=== PATIENT | male | born 1990 | race Caucasian/White ===

== ENCOUNTER 2017-04-29 10:02 | Observation (INO) | payer MEDICAID ==
[~2017-04-29] VITALS: Ht 177.8 cm; Wt 80.0 kg
[2017-04-29] MEDS ORDERED: SODIUM CHLORIDE 0.9% 1,000 ML IV ONE ×2 (12:02→12:11)
[2017-04-29] MEDS ORDERED: SODIUM CHLORIDE FLUSH 10ML SYR IVF PRN (12:30)
[2017-04-29] MEDS ORDERED: SODIUM CHLORIDE FLUSH 10ML SYR IVF ONE (12:30)
[2017-04-29] MEDS ORDERED: EPINEPHRINE 1 MG/ML, 1ML ONE (17:41)
[2017-04-29] MEDS ORDERED: BUPIVACAINE/PF 0.25% ONE (17:41)
[2017-04-29] MEDS ORDERED: DEXAMETHASONE 4 MG/ML, 1ML ONE ×3 (17:45→17:50)
[2017-04-29] MEDS ORDERED: ROCURONIUM 10 MG/ML,10ML ONE (17:45)
[2017-04-29] MEDS ORDERED: FENTANYL PF 100 MCG/2ML ONE ×3 (17:45→18:18)
[2017-04-29] MEDS ORDERED: ONDANSETRON 2MG/ML, 2ML ONE ×2 (17:45→17:50)
[2017-04-29] MEDS ORDERED: CEFAZOLIN 1,000 MG ONE ×3 (17:45→17:50)
[2017-04-29] MEDS ORDERED: PROPOFOL 10 MG/ML, 20ML ONE ×2 (17:45→17:50)
[2017-04-29] MEDS ORDERED: NEOSTIGMINE 1 MG/ML, 10ML ONE (17:50)
[2017-04-29] MEDS ORDERED: MIDAZOLAM 1 MG/ML, 2ML ONE ×2 (17:50→17:51)
[2017-04-29] MEDS ORDERED: KETOROLAC 30 MG/1 ML ONE ×2 (17:50→18:38)
[2017-04-29] MEDS ORDERED: GLYCOPYRROLATE 0.2MG/1ML, 5ML ONE (17:50)
[2017-04-29] MEDS ORDERED: ROCURONIUM 10MG/ML,5ML ONE (17:50)
[2017-04-29] MEDS ORDERED: BUPIVACAINE/PF-EPI 0.25% 1:200K INFIL ONE (18:13)
[2017-04-29] MEDS ORDERED: LABETALOL 5MG/ML, 20ML IV PRN (18:30)
[2017-04-29] MEDS ORDERED: FENTANYL PF 100 MCG/2ML IV PRN ×2 (18:30→19:00)
[2017-04-29] MEDS ORDERED: MEPERIDINE/PF 25MG/0.5ML IVPush PRN (18:30)
[2017-04-29] MEDS ORDERED: ALBUTEROL SULFATE 2.5 MG/3 ML NPPB PRN (18:30)
[2017-04-29] MEDS ORDERED: ACETAMINOPHEN 325 MG TABLET PO PRN (18:30)
[2017-04-29] MEDS ORDERED: EPHEDRINE 50 MG/ML, 1ML IVPush PRN (18:30)
[2017-04-29] MEDS ORDERED: PROMETHAZINE 25 MG/ML, 1ML IV PRN (18:30)
[2017-04-29] MEDS ORDERED: hydrALAzine 20 MG/ML, 1ML IV PRN (18:30)
[2017-04-29] MEDS ORDERED: LORazepam 2 MG/ML, 1ML IVPush PRN (18:30)
[2017-04-29] MEDS ORDERED: ONDANSETRON 2MG/ML, 2ML IVPush PRN (18:30)
[2017-04-29] MEDS ORDERED: METOPROLOL 1 MG/ML, 5ML IV PRN (18:30)
[2017-04-29] MEDS ORDERED: HYDROmorphone 1 MG/ML, 1ML IV PRN (19:00)
[2017-04-29] MEDS ORDERED: GLYCOPYRROLATE 0.4 MG/2 ML, 2ML ONE (19:38)
[2017-04-29 20:00] VITALS: BP 122/58
[2017-04-29] MEDS ORDERED: toradol PO (21:32)
[2017-04-29 21:45] VITALS: BP 127/75
== END 2017-04-29 22:00 | disposition home or self-care (01) ==
LOC: ED 11:50 → EDIP 12:11 → 4NOR 20:16
PROVIDERS: ADMIT Urology; ATTEND Urology
DX: C62.91 Malignant neoplasm of right testis, unspecified whether descended or undescended (principal); Z72.0 Tobacco use; Z72.89 Other problems related to lifestyle
CPT/HCPCS: 36415; 54530; 71010; 76870; 81003; 82105; 83615; 84702; 87491; 87591; 88309; 99285; G0378; J0171; J0690; J1100; J1885; J2250; J2405; J2704; J2710; J3010; J3490; J7030; 96360; 96361